=== PATIENT | male | born 1995 | race Two or more races ===

== ENCOUNTER 2018-03-17 19:43 | Emergency (ER) | payer OTHER ==
[2018-03-17 20:15] LABS: BILIRUBIN,URINE NEGATIVE (NEGATIVE); GLUCOSE, URINE (UA) NEGATIVE (NEGATIVE); KETONES,URINE (UA) NEGATIVE (NEGATIVE); LEUKOCYTE ESTERASE, URINE SMALL (NEGATIVE); NITRITE,URINE NEGATIVE (NEGATIVE); OCCULT BLOOD,URINE NEGATIVE (NEGATIVE); PROTEIN,URINE NEGATIVE (NEGATIVE); UROBILINOGEN,URINE 0.2 (NORMAL) E.U./dL (NORMAL)
[2018-03-17] MEDS ORDERED: LIDOCAINE 1% 2 ML VIAL SUBQ ONE (20:16)
[2018-03-17] MEDS ORDERED: cefTRIAXone 250 MG VIAL IM STA (20:16)
[2018-03-17] MEDS ORDERED: AZITHROMYCIN 250 MG TABLET PO STA (20:16)
--- NOTE | 2018-03-17 20:18 | ED Physician Documentation ---
History of Present Illness - Stated complaint Stated Complaint: MALE - Chief complaint Chief Complaint: General - History obtained from History obtained from: Patient - History of Present Illness Timing: Other (2 days of urinary frequency dysuria and urethral discharge without flank pain, testicular pain or mass or rash. Recently got out of a short relationship.) Review of Systems Constitutional: reports: Reviewed and negative Cardiac: reports: Reviewed and negative Respiratory: reports: Reviewed and negative PD PAST MEDICAL HISTORY - Past Medical History Past Medical History: No - Past Surgical History Past Surgical History: Yes Ortho: Other - Present Medications Home Medications: Ambulatory Orders Medication Instructions Recorded Confirmed No Known Home Medications 03/17/18 03/17/18 - Allergies Allergies/Adverse Reactions: Allergies Allergy/AdvReac Type Severity Reaction Status Date / Time No Known Drug Allergies Allergy Verified 03/17/18 19:49 - Social History Does the pt smoke?: No Smoking Status: Never smoker Does the pt drink ETOH?: Yes Does the pt have substance abuse?: No - Immunizations Immunizations are current?: Yes PD ED PE NORMAL - Vitals Vital signs reviewed: Yes - General General: Alert and oriented X 3, No acute distress - Abdomen Abdomen: Soft, Non tender - Male Male : Other (Normal uncircumcised male genitalia without rash, and inguinal adenopathy, testicular tenderness or swelling.) - Neuro Neuro: Alert and oriented X 3, Normal speech Results - Vitals Vitals: Vital Signs - 24 hr 03/17/18 19:47 Temperature 36.1 C L Heart Rate 86 Respiratory 16 Rate Blood Pressure 156/91 H O2 Saturation 99 Oxygen O2 Source Room air Departure - Departure Disposition: 01 Home, Self Care Clinical Impression: Urethritis Condition: Good Record reviewed to determine appropriate education?: Yes Instructions: ED STD Male Treated Comments: If gonorrhea or chlamydia tests are positive we will call you in a few days but you have been fully treated for both with the injection and 4 pills he got here. Return for new or worsening symptoms. Your blood pressure was elevated today on check into the emergency department. This does not mean that you have hypertension, it is a common phenomenon to come to the emergency department and have elevated blood pressure. I recommend that you see your primary care physician within the week to have it rechecked when you are feeling better.
[2018-03-17 20:23] LABS: CLARITY,URINE CLEAR (CLEAR)
[2018-03-17 20:35] LABS: BACTERIA,URINE None Seen /HPF (None Seen); RBC,URINE None Seen /HPF (0-5); SQUAMOUS EPITHELIAL CELL,UR NONE SEEN (<= Few)
[2018-03-17 20:50] VITALS: BP 146/80
== END 2018-03-17 20:54 | disposition home or self-care (01) ==
LOC: ED 19:43
DX: N28.89 Other specified disorders of kidney and ureter (principal); R03.0 Elevated blood-pressure reading, without diagnosis of hypertension
CPT/HCPCS: 81001; 87086; 87491; 87591; 96372; 99282; 99283; A9270; 81003

== ENCOUNTER 2019-01-05 12:38 | Emergency (ER) | payer OTHER ==
--- NOTE | 2019-01-05 12:46 | ED Physician Documentation ---
PD HPI OPHTHO - Stated complaint Stated Complaint: RT EYE REDNESS - Chief complaint Chief Complaint: Heent - History obtained from History obtained from: Patient - History of Present Illness Timing - onset: Last night Timing - duration: Days (1) Timing - details: Abrupt onset, Still present Location: Right. No: Both Quality / character: Aching (He was not aware of any direct injury. He started feeling discomfort of his right eye and had had contacts in for a slightly extended time. He took his contacts out but continued with irritation feeling on the right eye and this morning is having some redness and hyperemia. He did not have any discharge or matting. He has noted some light sensitivity on that side. There is no pain with eye motion. He has not had any prior similar episodes. No recent head cold.) Associated symptoms: Redness, FB sensation, Photophobia. No: Discharge, Matting Contributing factors: Wears contacts. No: Exposed to conjunctivitis, Recent URI, Blunt trauma Similar symptoms before: Has not had sx before Review of Systems Constitutional: denies: Fever, Chills Eyes: reports: Photophobia, Irritation. denies: Loss of vision, Discharge Nose: denies: Rhinorrhea / runny nose, Congestion Throat: denies: Sore throat GI: denies: Nausea, Vomiting Skin: denies: Rash, Lesions PD PAST MEDICAL HISTORY - Past Medical History Past Medical History: No - Past Surgical History Past Surgical History: Yes Ortho: Other - Present Medications Home Medications: Ambulatory Orders Medication Instructions Recorded Confirmed Ciprofloxacin HCl [Ciloxan (Cipro 1 - 2 drops RIGHTEYE Q3H #5 ml 01/05/19 OPT)] Tramadol HCl 50 mg PO Q6H PRN #10 tablet 01/05/19 - Allergies Allergies/Adverse Reactions: Allergies Allergy/AdvReac Type Severity Reaction Status Date / Time No Known Drug Allergies Allergy Verified 01/05/19 12:44 - Social History Does the pt smoke?: No Smoking Status: Never smoker Does the pt drink ETOH?: Yes Does the pt have substance abuse?: No - Immunizations Immunizations are current?: Yes PD ED PE NORMAL - Vitals Vital signs reviewed: Yes - General General: Alert and oriented X 3, No acute distress, Well developed/nourished - HEENT HEENT: Ears normal, Pharynx benign - Neck Neck: Supple, no meningeal sign, No adenopathy PD ED PE EXPANDED - Eyes Eyes: PERRL, EOMI, Injected conj/sclera, Corneal abrasion (central eye, single linear about 2-3 mm length), Fluorescein uptake, Anterior chambers clear, Normal fundi. No: Eyelid swelling, Eyelid erythema, Exudate, Corneal FB, Corneal ulcer Results - Vitals Vitals: Vital Signs - 24 hr 01/05/19 01/05/19 12:42 13:14 Heart Rate 85 81 Respiratory 18 18 Rate Blood Pressure 157/107 H 135/83 H O2 Saturation 99 97 Oxygen O2 Source Room air PD MEDICAL DECISION MAKING - ED course Complexity details: considered differential (Contact wearer with pain redness and some hyperemia on the right side. There is a small area of dye uptake consistent with an abrasion. It does not appear as an ulceration. We will treat with antibiotic drops.), d/w patient Departure - Departure Disposition: 01 Home, Self Care Clinical Impression: Corneal abrasion due to contact lens Qualifiers: Laterality: right Qualified Code(s): H18.821 - Corneal disorder due to contact lens, right eye Condition: Stable Record reviewed to determine appropriate education?: Yes Instructions: ED Corneal Injury Contact Lens Follow-Up: [facility] [Provider Group] Prescriptions: Ciprofloxacin HCl [Ciloxan (Cipro OPTH)] 1 - 2 drops RIGHTEYE Q3H #5 ml Tramadol HCl 50 mg PO Q6H PRN #10 tablet PRN Reason: Pain Comments: Ibuprofen or naproxen 2-3 times a day for discomfort and pain. Add Tylenol if needed. Use the Cipro ofloxacin antibiotic drops every 2-3 hours while awake. You should notice improvement over the next 1 to 2 days and the mainly resolved by a couple of days. Recheck if not better in that timeframe. You can wear dark glasses or such for protecting the sunlight. Studies have shown that taping or patching the eye actually prolongs the healing and holds in potential infection. Discharge Date/Time: 01/05/19 13:19
[2019-01-05 13:15] VITALS: BP 135/83
== END 2019-01-05 13:19 | disposition home or self-care (01) ==
LOC: ED 12:38
DX: H18.821 Corneal disorder due to contact lens, right eye (principal)
CPT/HCPCS: 99282

== ENCOUNTER 2019-07-27 02:16 | Emergency (ER) | payer OTHER ==
--- NOTE | 2019-07-27 02:43 | ED Physician Documentation ---
History of Present Illness - Stated complaint Stated Complaint: MALE - Chief complaint Chief Complaint: Abd Pain - History obtained from History obtained from: Patient (the patient is a 23 Y/O AD USN M p/w a cc of std. reports burning and discharge from urethral with a hx of chlamydia. denies any fevers.) Review of Systems Constitutional: reports: Reviewed and negative Eyes: reports: Reviewed and negative Ears: reports: Reviewed and negative Nose: reports: Reviewed and negative Throat: reports: Reviewed and negative Cardiac: reports: Reviewed and negative Respiratory: reports: Reviewed and negative GI: reports: Reviewed and negative : reports: Dysuria, Discharge Skin: reports: Reviewed and negative Musculoskeletal: reports: Reviewed and negative Neurologic: reports: Reviewed and negative Psychiatric: reports: Reviewed and negative Endocrine: reports: Reviewed and negative Immunocompromised: reports: Reviewed and negative PD PAST MEDICAL HISTORY - Past Medical History Past Medical History: Yes Other Past Medical History: Hx of Chalmydia - Past Surgical History Past Surgical History: Yes Ortho: Other - Present Medications Home Medications: Ambulatory Orders Medication Instructions Recorded Confirmed No Known Home Medications 07/27/19 07/27/19 - Allergies Allergies/Adverse Reactions: Allergies Allergy/AdvReac Type Severity Reaction Status Date / Time No Known Drug Allergies Allergy Verified 07/27/19 03:09 - Social History Does the pt smoke?: No Smoking Status: Never smoker Does the pt drink ETOH?: Yes Does the pt have substance abuse?: No - Immunizations Immunizations are current?: Yes - POLST Patient has POLST: No PD ED PE NORMAL - Vitals Vital signs reviewed: Yes - General General: Alert and oriented X 3, No acute distress, Well developed/nourished - HEENT HEENT: PERRL - Neck Neck: Supple, no meningeal sign - Cardiac Cardiac: RRR, No murmur - Respiratory Respiratory: No respiratory distress, Clear bilaterally - Abdomen Abdomen: Normal bowel sounds, Soft, Non tender, Non distended - Male Male : Other (Testicles descended bilaterally no inguinal lymphadenopathy small amount of yellowish discharge from the urethral meatus, No lesions) - Derm Derm: Warm and dry - Extremities Extremities: No deformity - Neuro Neuro: Alert and oriented X 3 - Psych Psych: Normal mood, Normal affect Results - Vitals Vitals: Vital Signs - 24 hr 07/27/19 07/27/19 02:25 03:20 Temperature 37.1 C 36.3 C L Heart Rate 80 66 Respiratory 14 14 Rate Blood Pressure 140/77 H 134/81 H O2 Saturation 98 99 Oxygen O2 Source Room air - Labs Labs: Laboratory Tests 07/27/19 02:30 Urine Color YELLOW Urine Clarity CLEAR Urine pH 7.0 Ur Specific [place] 1.010 Urine Protein NEGATIVE Urine Glucose (UA) NEGATIVE Urine Ketones NEGATIVE Urine Occult Blood NEGATIVE Urine Nitrite NEGATIVE Urine Bilirubin NEGATIVE Urine Urobilinogen 0.2 (NORMAL) Ur Leukocyte Esterase SMALL H Urine RBC 0-5 Urine WBC 6-10 H Ur Squamous Epith Cells NONE SEEN Urine Bacteria Rare Urine Yeast PRESENT Ur Microscopic Review INDICATED Urine Culture Comments INDICATED PD MEDICAL DECISION MAKING - ED course Complexity details: considered differential (hx of chlamydia with sx will treat with rocephin and azithromycin.), d/w patient Departure - Departure Disposition: 01 Home, Self Care Clinical Impression: STD (male) Condition: Stable Instructions: ED STD Male Treated Follow-Up: your, doctor [Other] - Tomorrow Comments: follow up with [facility] on Monday for a recheck. Discharge Date/Time: 07/27/19 03:21
[2019-07-27] MEDS ORDERED: cefTRIAXone 250 MG VIAL IM STA (02:44)
[2019-07-27] MEDS ORDERED: LIDOCAINE 1% 2 ML VIAL MC ONE (02:44)
[2019-07-27] MEDS ORDERED: AZITHROMYCIN 250 MG TABLET PO STA (02:45)
[2019-07-27 02:46] LABS: BILIRUBIN,URINE NEGATIVE (NEGATIVE); GLUCOSE, URINE (UA) NEGATIVE (NEGATIVE); KETONES,URINE (UA) NEGATIVE (NEGATIVE); LEUKOCYTE ESTERASE, URINE SMALL (NEGATIVE); NITRITE,URINE NEGATIVE (NEGATIVE); OCCULT BLOOD,URINE NEGATIVE (NEGATIVE); PROTEIN,URINE NEGATIVE (NEGATIVE); UROBILINOGEN,URINE 0.2 (NORMAL) E.U./dL (NORMAL)
[2019-07-27 02:48] LABS: CLARITY,URINE CLEAR (CLEAR)
[2019-07-27 03:07] LABS: BACTERIA,URINE Rare /HPF (None Seen); RBC,URINE 0-5 /HPF (0-5); SQUAMOUS EPITHELIAL CELL,UR NONE SEEN (<= Few); YEAST,URINE PRESENT
[2019-07-27 03:21] VITALS: BP 134/81
== END 2019-07-27 03:21 | disposition home or self-care (01) ==
LOC: ED 02:16
DX: A64 Unspecified sexually transmitted disease (principal)
CPT/HCPCS: 81001; 87086; 96372; 99283; A9270; 81003

== ENCOUNTER 2019-08-11 20:23 | Emergency (ER) | payer OTHER ==
--- NOTE | 2019-08-11 21:43 | ED Physician Documentation ---
History of Present Illness - Stated complaint Stated Complaint: MALE - Chief complaint Chief Complaint: General - History obtained from History obtained from: Patient - Additonal information Additional information: Patient comes emergency department complaining of left testicular pain for the last 3 days after wearing tight underwear during a long work shift a few days ago. Patient states that he has just noticed a hypersensitivity of the testicle and that when he touches it lately, it feels that is pinching it very hard. He also has noticed a couple of swollen veins, and is very concerned because when he googled testicular pain, he found warnings about potential torsion. The patient states the pain has not gotten any better or worse over the last few days. He states that when he took the underwear off initially, he noticed that the tip of his penis seemed to be a bluish-purple color. He felt this was likely due to the tightness of the underwear and that this did improve by the ne xt day. However, the testicle pain persisted. Patient denies any penile discharge. No dysuria. He states he is not currently sexually active. He denies any concerning sexual encounters in the last few months and does not know of being exposed to any STDs by anybody. However, he does state that he was just tested for STDs a few weeks ago. Patient denies any redness of the scrotum. No swelling. No worsening with heavy lifting. No lesions. Patient states that he notices the pain less when he is busy with something else, like working out. However, when he stops and does not have any distractions, he feels the pain more. No abdominal pain, nausea, or fever. No other complaints at this timeNo family history of hernias. No heavy lifting at work. Review of Systems Ten Systems: 10 systems reviewed and negative Constitutional: reports: Reviewed and negative Eyes: reports: Reviewed and negative Ears: reports: Reviewed and negative Nose: reports: Reviewed and negative Throat: reports: Reviewed and negative Cardiac: reports: Reviewed and negative Respiratory: reports: Reviewed and negative GI: reports: Reviewed and negative : reports: Testicular pain Skin: reports: Reviewed and negative Musculoskeletal: reports: Reviewed and negative Neurologic: reports: Reviewed and negative Psychiatric: reports: Reviewed and negative Endocrine: reports: Reviewed and negative Immunocompromised: reports: Reviewed and negative PD PAST MEDICAL HISTORY - Past Medical History Past Medical History: Yes Other Past Medical History: Chlamydia - Past Surgical History Past Surgical History: Yes Ortho: Other - Present Medications Home Medications: Ambulatory Orders Medication Instructions Recorded Confirmed No Known Home Medications 07/27/19 08/11/19 - Allergies Allergies/Adverse Reactions: Allergies Allergy/AdvReac Type Severity Reaction Status Date / Time No Known Drug Allergies Allergy Verified 08/11/19 20:27 - Social History Does the pt smoke?: No Smoking Status: Never smoker Does the pt drink ETOH?: Yes Does the pt have substance abuse?: No - Immunizations Immunizations are current?: Yes - POLST Patient has POLST: No PD ED PE NORMAL - Vitals Vital signs reviewed: Yes - General General: Alert and oriented X 3, No acute distress - HEENT HEENT: Atraumatic, PERRL, EOMI, Moist mucous membranes - Neck Neck: Supple, no meningeal sign - Respiratory Respiratory: No respiratory distress - Abdomen Abdomen: Soft, Non tender, Non distended - Male Male : Other (Patient is uncircumcised with normal male anatomy. His testicles are symmetrical bilaterally. He has slight tenderness of the left testicle. Mildly prominent vasculature is palpable on the left testicle. No scrotal enlargement, skin changes, lesions, obvious hernia or palpable defect. ) - Derm Derm: Normal color, Warm and dry, No rash - Extremities Extremities: No deformity - Neuro Neuro: Alert and oriented X 3 - Psych Psych: Normal mood, Normal affect Results - Vitals Vitals: Oxygen O2 Source Room air - Rads (name of study) Scrotal US Radiology: Final report received, EMP read indepedently, See rad report (varicocele, hydrocele bilaterally. No torsion) PD MEDICAL DECISION MAKING - ED course Complexity details: reviewed results, re-evaluated patient, considered differential, d/w patient ED course: Patient was worked up with testicular ultrasound, which showed bilateral hydroceles which were small, and a left-sided varicocele. I discussed with the patient that there is no evidence of a torsion at this time, and that he has good flow of blood to his testicles. He is advised to follow-up with urology if he continues to have pain after the next week. Departure - Departure Disposition: 01 Home, Self Care Clinical Impression: Left varicocele, Hydrocele of testis, Testicular pain, left Condition: Stable Instructions: ED Hydrocele Type Not Specified, ED Varicocele Comments: Your ultrasound showed mild hydroceles your bilateral testicles/scrotum, as well as a varicocele, or set of enlarged veins, on the left. Please follow the instructions we have discussed to help minimize the symptoms of these. You may use anti-inflammatory such as ibuprofen for discomfort. Please wear supportive but not tight underwear. You may follow-up with urology, as we have discussed, if you are not feeling better in the next week. Discharge Date/Time: 08/11/19 22:00
--- NOTE | 2019-08-11 21:55 | Ultrasound Report ---
PROCEDURE: Testicle w/Doppler INDICATIONS: testicular pain TECHNIQUE: Real-time scanning was performed of the scrotum and testicles, with image documentation. Color and p ulse Doppler interrogation was performed of both testicles. COMPARISON: None. FINDINGS: Right: Testicle is normal in size at 4.6 x 1.9 x 2.6 cm, and homogenous in echotexture. Epididymis is normal in overall size and morphology. A hydrocele is present. Small right varicocele. Overlying s crotal skin is normal in thickness. Left: Testicle is normal in size at 4.7 x 2.2 x 3.2 cm, and homogeneous in echotexture. Epididymis is normal in overall size and morphology. A hydrocele is present. Large left varicocele.. Overlying s crotal skin is normal in thickness. Doppler: Color and pulse Doppler demonstrate normal and symmetric arterial flow in both testicles. IMPRESSION: 1. Left greater than right varicoceles. 2. Bilateral hydroceles. 3. No evidence of torsion. Reviewed by: Florencio Cyr MD on 08/11/2019 9:54 PM PDT Approved by: Florencio Cyr MD on 08/11/2019 9:54 PM PDT Station ID: [id number]
[2019-08-11 22:02] VITALS: BP 150/90
== END 2019-08-11 22:00 | disposition home or self-care (01) ==
LOC: ED 20:23
DX: N50.812 Left testicular pain (principal); N43.3 Hydrocele, unspecified; I87.8 Other specified disorders of veins
CPT/HCPCS: 76870; 93975; 99284

== ENCOUNTER 2020-01-20 02:36 | Emergency (ER) | payer OTHER ==
[2020-01-20] MEDS ORDERED: cefTRIAXone 500 MG VIAL IM STA (03:23)
[2020-01-20] MEDS ORDERED: AZITHROMYCIN 250 MG TABLET PO STA (03:23)
[2020-01-20] MEDS ORDERED: LIDOCAINE 1% 2 ML VIAL MC ONE (03:23)
--- NOTE | 2020-01-20 03:30 | ED Physician Documentation ---
PD HPI MALE - Stated complaint Stated Complaint: MALE - Chief complaint Chief Complaint: General - History obtained from History obtained from: Patient - History of Present Illness Timing - onset: How many weeks ago (2) Timing - duration: Weeks (2) Timing - details: Gradual onset, Still present (worse the past several days), Waxing and waning Associated symptoms: Dysuria, Discharge. No: Genital sore / lesion, Testiclar pain, Back pain PD HPI MALE CONTRIB FACTORS: Sexually active (last partner was a month ago, unprotected. Not active the past couple of weeks.) Similar symptoms before: Diagnosis (urethritis this past Mar and July. STI testing negative though at that time in July.) Recently seen: Not recently seen Review of Systems Constitutional: denies: Fever Eyes: denies: Discharge, Irritation Nose: denies: Rhinorrhea / runny nose, Congestion Throat: denies: Oral lesions / sores, Sore throat Respiratory: denies: Cough Skin: denies: Rash, Lesions PD PAST MEDICAL HISTORY - Past Medical History Past Medical History: No - Past Surgical History Past Surgical History: Yes Ortho: Other - Present Medications Home Medications: Ambulatory Orders Medication Instructions Recorded Confirmed No Known Home Medications 07/27/19 08/11/19 - Allergies Allergies/Adverse Reactions: Allergies Allergy/AdvReac Type Severity Reaction Status Date / Time No Known Drug Allergies Allergy Verified 08/11/19 20:27 - Social History Does the pt smoke?: No Smoking Status: Never smoker Does the pt drink ETOH?: Yes Does the pt have substance abuse?: No - Immunizations Immunizations are current?: Yes - POLST Patient has POLST: No PD ED PE NORMAL - Vitals Vital signs reviewed: Yes - General General: Alert and oriented X 3, No acute distress, Well developed/nourished - Abdomen Abdomen: Soft, Non tender - Male Male : Deferred - Back Back: No CVA TTP - Derm Derm: Normal color, Warm and dry - Neuro Neuro: Alert and oriented X 3, No motor deficit, Normal speech Results - Vitals Vitals: Vital Signs - 24 hr 01/20/20 03:04 Temperature 36.8 C Heart Rate 75 Respiratory 16 Rate Blood Pressure 132/87 H O2 Saturation 98 Oxygen O2 Source Room air PD MEDICAL DECISION MAKING - ED course Complexity details: considered differential (seems likely STI and will treat empirically. No oral nor conjunctival symptoms to suggest inflammatory systemic mucous process.No chemical exposures such as condom, shampoos, etc for chemical and duration is too long. ), d/w patient Departure - Departure Disposition: 01 Home, Self Care Clinical Impression: Urethritis Condition: Stable Record reviewed to determine appropriate education?: Yes Instructions: ED Urethritis Infec Vs Inflam Male Follow-Up: [facility] [Provider Group] Comments: The urine test will take a day or so. We will call you if there is any findings of other infectious cause that would require supplemental antibiotics. We have covered you for the main STIs with the medication tonight. You can use some anti-inflammatory such as ibuprofen or naproxen as well to help reduce the irritation of the urethra. Stay well-hydrated. I would anticipate improvement in your symptoms over the next few days and resolution by 3 to 5 days. Recheck if not improved well over the next several days and return if worsening.
[2020-01-20 03:43] VITALS: BP 133/80
[2020-01-20 04:00] LABS: BILIRUBIN,URINE NEGATIVE (NEGATIVE); GLUCOSE, URINE (UA) NEGATIVE (NEGATIVE); KETONES,URINE (UA) NEGATIVE (NEGATIVE); LEUKOCYTE ESTERASE, URINE NEGATIVE (NEGATIVE); NITRITE,URINE NEGATIVE (NEGATIVE); OCCULT BLOOD,URINE NEGATIVE (NEGATIVE); PROTEIN,URINE NEGATIVE (NEGATIVE); UROBILINOGEN,URINE 0.2 (NORMAL) E.U./dL (NORMAL)
[2020-01-20 04:17] LABS: CLARITY,URINE CLEAR (CLEAR)
== END 2020-01-20 03:42 | disposition home or self-care (01) ==
LOC: ED 02:36
DX: N34.2 Other urethritis (principal)
CPT/HCPCS: 81003; 87491; 87591; 96372; 99283; 99284; A9270; 81001; 87086; 87661; 87801

== ENCOUNTER 2020-08-03 09:31 | Emergency (ER) | payer OTHER ==
[2020-08-03 10:01] LABS: BILIRUBIN,URINE NEGATIVE (NEGATIVE); GLUCOSE, URINE (UA) NEGATIVE (NEGATIVE); KETONES,URINE (UA) NEGATIVE (NEGATIVE); LEUKOCYTE ESTERASE, URINE NEGATIVE (NEGATIVE); NITRITE,URINE NEGATIVE (NEGATIVE); OCCULT BLOOD,URINE NEGATIVE (NEGATIVE); PROTEIN,URINE NEGATIVE (NEGATIVE); UROBILINOGEN,URINE 0.2 (NORMAL) E.U./dL (NORMAL)
[2020-08-03 10:04] LABS: AMORPHOUS SEDIMENT,UR Rare /LPF; BACTERIA,URINE Rare /HPF (None Seen); CLARITY,URINE CLEAR (CLEAR); MUCUS,URINE Few Strands; RBC,URINE 0-5 /HPF (0-5); SQUAMOUS EPITHELIAL CELL,UR FEW Squamous (<= Few); WBC,URINE 0-3 /HPF (0-3)
[2020-08-03] MEDS ORDERED: cefTRIAXone 250 MG VIAL IM STA (12:15)
[2020-08-03] MEDS ORDERED: LIDOCAINE 1% 2 ML VIAL MC ONE (12:15)
[2020-08-03] MEDS ORDERED: AZITHROMYCIN 250 MG TABLET PO STA (12:15)
[2020-08-03 12:16] VITALS: BP 122/70
--- NOTE | 2020-08-03 12:27 | ED Physician Documentation ---
History of Present Illness - Stated complaint Stated Complaint: MALE - Chief complaint Chief Complaint: UTI - History obtained from History obtained from: Patient - Additonal information Additional information: 24-year-old man presents with dysuria progressive over the past 2 days associated with penile discharge and concerned that he has an STI. Patient is requesting STI test. Review of Systems Constitutional: denies: Fever, Chills : reports: Dysuria, Discharge. denies: Testicular pain, Testicular mass Musculoskeletal: denies: Back pain PD PAST MEDICAL HISTORY - Past Medical History Past Medical History: No - Past Surgical History Past Surgical History: Yes Ortho: Other - Present Medications Home Medications: Ambulatory Orders Medication Instructions Recorded Confirmed No Known Home Medications 07/27/19 08/11/19 - Allergies Allergies/Adverse Reactions: Allergies Allergy/AdvReac Type Severity Reaction Status Date / Time No Known Drug Allergies Allergy Verified 08/11/19 20:27 - Social History Does the pt smoke?: No Smoking Status: Never smoker Does the pt drink ETOH?: Yes Does the pt have substance abuse?: No - Immunizations Immunizations are current?: Yes - POLST Patient has POLST: No PD ED PE NORMAL - Vitals Vital signs reviewed: Yes - General General: Alert and oriented X 3, No acute distress, Well developed/nourished - HEENT HEENT: Atraumatic, PERRL, EOMI - Male Male : Pt declined - Derm Derm: Normal color, Warm and dry - Neuro Neuro: Alert and oriented X 3 - Psych Psych: Normal mood, Normal affect Results - Vitals Vitals: Vital Signs - 24 hr 08/03/20 08/03/20 09:42 12:16 Temperature 36.4 C L 36.7 C Heart Rate 74 63 Respiratory 16 18 Rate Blood Pressure 134/73 H 122/70 O2 Saturation 98 100 Oxygen O2 Source Room air - Labs Labs: Laboratory Tests 08/03/20 09:50 Urine Color YELLOW Urine Clarity CLEAR Urine pH 6.0 Ur Specific [place] >=1.030 H Urine Protein NEGATIVE Urine Glucose (UA) NEGATIVE Urine Ketones NEGATIVE Urine Occult Blood NEGATIVE Urine Nitrite NEGATIVE Urine Bilirubin NEGATIVE Urine Urobilinogen 0.2 (NORMAL) Ur Leukocyte Esterase NEGATIVE Urine RBC 0-5 Urine WBC 0-3 Ur Squamous Epith Cells FEW Squamous Amorphous Sediment Rare Urine Bacteria Rare Urine Mucus Few Strands Urine Culture Comments NOT INDICATED PD MEDICAL DECISION MAKING - ED course ED course: Patient initially requested STI testing within asked to just be treated with antibiotics. Education given about STI prevention. He will alert partner to get tested or treated. Antibiotics given. Return precautions given. Departure - Departure Disposition: 01 Home, Self Care Clinical Impression: Dysuria, Penile discharge Condition: Good Instructions: ED Dysuria Uncertain Cause Comments: You are seen in the emergency department for painful urination and penile discharge. Antibiotics were given to treat for possible gonorrhea/chlamydia. Return to the emergency department if you have any new or worsening symptoms or other concerns.
[2020-08-03 23:01] LABS: CHLAMYDIA TRACHOMATIS DNA NEGATIVE (NEGATIVE); NEISSERIA GONORRHOEAE DNA NEGATIVE (NEGATIVE)
== END 2020-08-03 12:46 | disposition home or self-care (01) ==
LOC: ED 09:31
DX: R30.0 Dysuria (principal); R36.9 Urethral discharge, unspecified; Z11.3 Encounter for screening for infections with a predominantly sexual mode of transmission
CPT/HCPCS: 81001; 87491; 87591; 96372; 99283; A9270; 87086; 87661

== ENCOUNTER 2020-10-06 01:16 | Emergency (ER) | payer OTHER ==
--- NOTE | 2020-10-06 02:07 | ED Physician Documentation ---
PD HPI LOWER EXT INJURY - Stated complaint Stated Complaint: R KNEE PX - Chief complaint Chief Complaint: Ext Problem - History obtained from History obtained from: Patient - History of Present Illness PD HPI LOW EXT INJURY LOCATION: Right, Knee Type of injury: Twist. No: Fall Where injury occurred: Home (He was sprinting on a treadmill and stopped the sprinting and was starting to get off and noted a twisting of the knee with a pop feeling in the anterior part. Still hurts with extension of the leg. No locking or giving out. Concerned about ligaments and here for exam.) Timing - onset: How many hours ago (1), Today Timing - details: Abrupt onset, Still present (though hurting less as he gets here. Able to walk okay.) Worsened by: Moving (hurting with extension of the knee during gait.). No: Palpating Associated symptoms: No: Weakness, Numbness, Swelling Similar symptoms before: No diagnosis (He states he will notice occasional clicking or popping in the anterior part of the knee with torsional movement. This has been for a week or 2. No swelling noted.) Review of Systems Skin: denies: Rash, Lesions Musculoskeletal: denies: Joint swelling Neurologic: denies: Focal weakness, Numbness PD PAST MEDICAL HISTORY - Past Medical History Past Medical History: Yes Musculoskeletal: None - Past Surgical History Past Surgical History: Yes Ortho: Other - Present Medications Home Medications: Ambulatory Orders Medication Instructions Recorded Confirmed No Known Home Medications 07/27/19 08/11/19 - Allergies Allergies/Adverse Reactions: Allergies Allergy/AdvReac Type Severity Reaction Status Date / Time No Known Drug Allergies Allergy Verified 08/11/19 20:27 - Social History Does the pt smoke?: No Smoking Status: Never smoker Does the pt drink ETOH?: Yes Does the pt have substance abuse?: No - Immunizations Immunizations are current?: Yes - POLST Patient has POLST: No PD ED PE NORMAL - Vitals Vital signs reviewed: Yes - General General: Alert and oriented X 3, No acute distress, Well developed/nourished - Derm Derm: Normal color, Warm and dry - Extremities Extremities: Normal ROM s pain (Impaction and rotation without pain (modified Apley/meniscal testing).), Other (The right knee shows minimal tenderness in the medial suprapatellar area. He has good strong full extension without notable pain. There is no effusion noted. The kneecap appears to be riding in the location. Testing of the cruciate and collateral ligaments does not precipitate pain or laxity. ) - Neuro Neuro: Alert and oriented X 3, No motor deficit, No sensory deficit, Normal speech Results - Vitals Vitals: Vital Signs - 24 hr 10/06/20 10/06/20 10/06/20 01:35 01:44 03:14 Temperature 37.1 C 37.1 C 37.1 C Heart Rate 82 82 79 Respiratory 12 12 14 Rate Blood Pressure 126/75 126/75 125/72 O2 Saturation 100 100 100 Oxygen O2 Source Room air PD MEDICAL DECISION MAKING - ED course Complexity details: considered differential (The location of his symptoms and the description sounds suggestive of patellofemoral syndrome with some occasional clicking of his kneecap. It sounds likely that it was a bit more out of place as he got off the treadmill and it popped. No signs of cruciate collateral or meniscal injury on exam.), d/w patient Departure - Departure Disposition: 01 Home, Self Care Clinical Impression: Right anterior knee pain Patella-femoral syndrome Qualifiers: Laterality: right Qualified Code(s): M22.2X1 - Patellofemoral disorders, right knee Condition: Stable Record reviewed to determine appropriate education?: Yes Instructions: Patellofemoral Syndrome Follow-Up: MIKE Myers [Provider Group] Comments: Your major ligaments of the knee including the cruciates and collaterals as well as the meniscus seem okay. I think you are having some looseness of the kneecap in the femoral groove causing some clicking and some stretching on the ligaments and tendons. I would suggest a knee sleeve that has the kneecap area open and allows a little pressure around it to hold the kneecap in place as you are doing activity. It does not want to be really tight as that can cause some swelling below it because of affecting the return venous flow. It wants to be just snug enough to hold the kneecap in place as you are doing activity. You can use some ibuprofen if needed for pains. See how this does with your activities over the next week or 2 and follow-up with your primary care if not improved. Discharge Date/Time: 10/06/20 03:14
[2020-10-06 03:15] VITALS: BP 125/72
== END 2020-10-06 03:14 | disposition home or self-care (01) ==
LOC: ED 01:16
DX: M22.2X1 Patellofemoral disorders, right knee (principal); M25.561 Pain in right knee
CPT/HCPCS: 99281; 99283

== ENCOUNTER 2021-03-10 07:35 | Emergency (ER) | payer OTHER ==
[2021-03-10 07:50] VITALS: BP 135/75
--- NOTE | 2021-03-10 08:15 | ED Physician Documentation ---
PD HPI LOWER EXT INJURY - Stated complaint Stated Complaint: L TOE PX - Chief complaint Chief Complaint: Ext Problem - History obtained from History obtained from: Patient - History of Present Illness PD HPI LOW EXT INJURY LOCATION: Left, Toe (great) Type of injury: Other (he states he noted the nail to crack at the base of the nailbed couple weeks ago after he was running. It developed yellowish color and is now starting to lift up at one side. Wondering if nail should come off the rest of the way.) Where injury occurred: Street Timing - onset: How many weeks ago (2) Timing - duration: Weeks Timing - details: Gradual onset, Still present Associated symptoms: Other (just that the nail has loosened and is lifting from one side, so is uncomfortable.). No: Weakness, Numbness, Swelling Similar symptoms before: Has not had sx before Recently seen: Not recently seen Review of Systems Neurologic: denies: Focal weakness, Numbness PD PAST MEDICAL HISTORY - Past Medical History Cardiovascular: None Respiratory: None Neuro: None Endocrine/Autoimmune: None GI: None : None HEENT: None Psych: None Musculoskeletal: None Derm: None - Past Surgical History Past Surgical History: Yes Ortho: Other - Present Medications Home Medications: Ambulatory Orders Medication Instructions Recorded Confirmed Terbinafine HCl [Lamisil At] 1 applic TP BID 30 Days #30 gm 03/10/21 - Allergies Allergies/Adverse Reactions: Allergies Allergy/AdvReac Type Severity Reaction Status Date / Time No Known Drug Allergies Allergy Verified 03/10/21 07:46 - Social History Does the pt smoke?: No Smoking Status: Never smoker Does the pt drink ETOH?: Yes Does the pt have substance abuse?: No - Immunizations Immunizations are current?: Yes - POLST Patient has POLST: No PD ED PE NORMAL - Vitals Vital signs reviewed: Yes - General General: Alert and oriented X 3, No acute distress, Well developed/nourished - Derm Derm: Normal color, Warm and dry - Extremities Extremities: Other (left great toe nail is yellowish colored (not vascular to the base, except distal lateral corner with still some pink color). APpears new nail is coming in under the proximal portion of the loosened nail. ) - Neuro Neuro: No motor deficit, No sensory deficit Results - Vitals Vitals: Vital Signs - 24 hr 03/10/21 07:47 Temperature 36.3 C L Heart Rate 79 Respiratory 16 Rate Blood Pressure 135/75 H O2 Saturation 98 Oxygen O2 Source Room air Procedures - General procedure General procedure: THe toenail was mostly loosened from nailbed, though adherent in quick corners. This was gently pried up and scissor snipped to loosed from softt tissue, until the nail came off. The new nail in proximal bed appears growing in okay without discoloring nor thickening. PD MEDICAL DECISION MAKING - ED course Complexity details: considered differential (the colring of the nail has appearance of fungal involvement, though it could have just gotten injured and the nail was "" from the base and thus discolored. As new nail comes in, can use some topical antifungal. ), d/w patient Departure - Departure Disposition: 01 Home, Self Care Clinical Impression: Toenail deformity Condition: Stable Record reviewed to determine appropriate education?: Yes Instructions: ED Nail Infec Fungal Prescriptions: Terbinafine HCl [Lamisil At] 1 applic TP BID 30 Days #30 gm Comments: Minimal walking and standing today due to toenail procedure. The new nail growing in looks pretty good though there is still some scaliness on the corner of the nailbed. You may have had injury of the nailbed that caused a separation of the old nail that is now come loose. Other consideration would be a fungal infection and there that caused it to diet and separate. With that in mind, I would suggest using some topical antifungal ointment twice daily to the nailbed for the next month or so as the new nail is growing in and see if it grows in well. Tylenol or ibuprofen if needed for pains today. Forms: Activity restrictions Discharge Date/Time: 03/10/21 09:04
[2021-03-10] MEDS ORDERED: MUPIROCIN 2% OINT 1 GM TOP STA (08:44)
[2021-03-10] MEDS ORDERED: IBUPROFEN 600 MG TABLET PO STA (08:49)
== END 2021-03-10 09:04 | disposition home or self-care (01) ==
LOC: ED 07:35
DX: L60.8 Other nail disorders (principal); M79.675 Pain in left toe(s)
CPT/HCPCS: 11750; 99282; A9270